=== PATIENT | female | born 1965 | race Caucasian/White ===

== ENCOUNTER 2020-03-31 21:12 | Emergency (ER) | payer OTHER ==
[~2020-03-31] VITALS: Ht 172.7 cm; Wt 69.2 kg
--- NOTE | 2020-03-31 21:27 | NUR ---
PT REPORTS IRREGULAR HEART BEAT X4 DAYS AND DIZZINESS, AND FEELING "WHIPED OUT" X 2 WEEKS, ALSO REPORTS COVID SYMPTOMS ON 03/06/2020 FOR 1 WEEK NOW RESOLVED.
--- NOTE | 2020-03-31 21:52 | NUR ---
LAB AND XRAY AT BEDSIDE.
[2020-03-31 22:07] LABS: BASOPHILS # (AUTO) 0.04 x10^3/uL (0-0.1); BASOPHILS % (AUTO) 1 % (0-1); EOSINOPHILS # (AUTO) 0.17 x10^3/uL (0-0.4); EOSINOPHILS % (AUTO) 3 % (1-7); LYMPHOCYTES # (AUTO) 2.37 x10^3/uL (1-3.4); LYMPHOCYTES % (AUTO) 40 % (22-44); MD NO; MEAN CORPUSCULAR HEMOGLOBIN 30.8 pg (27.0-34.8); MEAN CORPUSCULAR HGB CONC 33.8 g/dL (32.4-35.8); MEAN CORPUSCULAR VOLUME 91.1 fL (80-100); MEAN PLATELET VOLUME 8.8 fL (7.4-10.4); MONOCYTES # (AUTO) 0.58 x10^3/uL (0.2-0.8); MONOCYTES % (AUTO) 10 % (2-9); NEUTROPHILS # (AUTO) 2.77 x10^3/uL (1.8-6.8); NEUTROPHILS % (AUTO) 47 % (42-75); PLATELET COUNT 262 x10^3/uL (130-400); RED BLOOD COUNT 4.33 x10^6/uL (3.82-5.3); RED CELL DISTRIBUTION WIDTH 12.8 % (9.6-15.2)
[2020-03-31 22:18] LABS: ALBUMIN 3.8 g/dL (3.4-5.0); ANION GAP 5 mmol/L (5-15); CALCIUM 8.8 mg/dL (8.5-10.1); CHLORIDE 111 mmol/L (98-107); CREATININE 1.02 mg/dL (0.55-1.02)
[2020-03-31 22:21] LABS: TROPONIN I < 0.015 ng/mL (0.000-0.045)
[2020-03-31 22:45] VITALS: BP 122/75
--- NOTE | 2020-03-31 22:46 | NUR ---
RESTING ON [employer] READING BOOK, DENIES DIZZINESS AT THIS TIME, STATES SHE FEELS MUCH BETTER. VSS. SAFETY FALL PRECAUTIONS IN PLACE.
[2020-03-31 22:59] LABS: FREE T4 (FREE THYROXINE) 1.07 ng/dL (0.76-1.46)
== END 2020-03-31 23:49 | disposition home or self-care (01) ==
LOC: ED 23:21
DX: R00.2 Palpitations (principal); R42 Dizziness and giddiness; R94.31 Abnormal electrocardiogram [ECG] [EKG]
CPT/HCPCS: 36415; 71045; 80048; 82040; 84439; 84443; 84484; 85025; 93005; 99285